=== PATIENT | male | born 1975 | race Caucasian/White ===

== ENCOUNTER 2016-06-07 08:59 | Emergency (ER) | payer MEDICAID ==
[2016-06-07 09:03] VITALS: BP 122/83; PULSE 98; RESP 16; TEMP 97.7; O2SAT 97
--- NOTE | 2016-06-07 09:29 | DX ---
Chest, PA and Lateral History: Cough and congestion x3 weeks, fatigue, history of asthma Findings: There is vague nodular infiltrate in right upper lobe. There are also vague nodules in each midlung, right greater than left. There is no pleural fluid. There is no adenopathy or cardiomegaly. Lung volumes are mildly prominent. There is perihilar bronchial wall thickening. Heart size is relat ively small, consistent with the prominent lung volumes. There is no mass lesion. Bones are unremarka ble. Impression: Bilateral nodular infiltrate. Potentially this patient could have mucous plugging and/or allergic bronchopulmonary aspergillosis . Follow-up radiography is recommended. Results discussed with Dr. Horton at 926 a.m.
--- NOTE | 2016-06-07 09:41 | EDPHY ---
H & P Stated Complaint: congestion for 10 days Time Seen by Provider: 06/07/16 09:09 - Personal History Current Tetanus/Diphtheria Vaccine: Unsure Current Tetanus Diphtheria and Acellular Pertussis (TDAP): Unsure - Medical/Surgical History Hx Asthma: No Hx Chronic Respiratory Disease: No Hx Diabetes: No Hx Cardiac Disease: No Hx Renal Disease: No Hx Cirrhosis: No Hx Alcoholism: No Hx HIV/AIDS: No Hx Splenectomy or Spleen Trauma: No - Social History Smoking Status: Former smoker Constitutional: Initial Vital Signs Temperature (C) 36.5 C 06/07/16 09:01 Heart Rate 98 06/07/16 09:01 Respiratory Rate 16 06/07/16 09:01 Blood Pressure 122/83 H 06/07/16 09:01 O2 Sat (%) 97 06/07/16 09:01 O2 Delivery Mode Room Air Allergies/Adverse Reactions: No Known Allergies Allergy (Unverified 06/07/16 09:02) Medical Decision Making ED Course/Re-evaluation: CHIEF COMPLAINT: Cough sore throat and congestion HISTORY OF PRESENT ILLNESS: 40-year-old gentleman whose had a cough sore throat and congestion for at least 3 days. The sore throat is more severe than usual and the cough is persistent keeping him up at night he denies fevers chills or systemic illness. Patient denies any chronic illnesses patient denies being immunocompromised. He is mostly here because the cough is persistently keeping him up. REVIEW OF SYSTEMS: A 10 point review of systems was performed and is negative with the exception of the elements mentioned in the history of present illness. PHYSICAL EXAM: HR, BP, O2 Sat, RR. Temp noted General Appearance: Alert, well hydrated, appropriate, and non-toxic appearing. Head: Atraumatic without scalp tenderness or obvious injury Eyes: Pupils equal, round, reactive to light and accommodation, EOMI, no trauma , no injection. Ears: Clear bilaterally, no perforation, normal landmarks Nose: Atraumatic, no rhinorrhea, clear. Throat: There is no erythema or exudates, no lesions, normal tonsils, mucus membranes moist. Neck: Supple, 2+ carotid upstroke, nontender, no lymphadenopathy. Respiratory: No retractions, no distress, no wheezes, and no accessory muscle use. Coarse rhonchi throughout all ching with no focal decrease Cardiovascular: Regular rate and rhythm, no murmurs, rubs, or gallops. Bilateral carotid, radial, dorsalis pedis, and posterior tibial pulses intact. Good capillary refill all extremities. Gastrointestinal: Abdomen is soft, nontender, non-distended, no masses, no rebound, no guarding, no peritoneal signs. Musculoskeletal: Normal active ROM of all extremities, atraumatic. Neurological: Alert, appropriate, and interactive. The patient has normal DTRs and non-focal cranial nerves, motor, sensory, and cerebellar exam. Skin: No rashes, good turgor, no nodules on palpation. Past medical history: remote history of asthma Past surgical history: noncontributory Family history: noncontributory Social history: single, employed, does not abuse tobacco drugs or alcohol DIAGNOSTICS/PROCEDURES/CRITICAL CARE TIME: Study: PA and Lateral Chest X-ray Indication: Cough Results: After viewing the images myself on the PACS system. My interpretation of the images is: bronchitis. [The radiologist interpretation is pending at the time of this dictation.] [I have discussed the above x-rays with the radiologist.] DIFFERENTIAL DIAGNOSIS: The differential diagnosis for the patient's shortness of breath [and hypoxemia] included but was not limited to [pneumonia, myocardial infarction, acute mountain sickness, high altitude pulmonary edema, congestive heart failure, and pulmonary embolus.] MEDICAL DECISION MAKING: this patient is having normal saturations. He has bronchitis on exam of bronchitis on chest x-ray. I will start him on a Z-Jamel, given 1 dose of prednisone since there is some possibility of allergic exposure to mold from his attic over the last couple days. I will also give him Hycodan elix and a bronchodilator since he is out of his. He will follow up with his regular doctor return here if he does get better in the next few days. Departure - Departure Disposition: Home, Routine, Self-Care Clinical Impression: Acute bronchitis Qualifiers: Bronchitis organism: unspecified organism Qualifier Code: (J20.9) Acute bronchitis, unspecified Condition: Good Instructions: Acute Bronchitis (ED)
[2016-06-07] MEDS ORDERED: predniSONE 20 MG TAB PO ONE (09:42)
== END 2016-06-07 09:49 | disposition home or self-care (01) ==
DX: J20.9 Acute bronchitis, unspecified (principal); Z87.891 Personal history of nicotine dependence